=== PATIENT | female | born 1970 | race Caucasian/White ===

== ENCOUNTER 2021-09-12 17:46 | Emergency (ER) | payer OTHER, SELFPAY ==
[2021-09-12 17:47] VITALS: BP 126/95; PULSE 90; RESP 18; TEMP 36.4; O2SAT 98; BMI 45.1
--- NOTE | 2021-09-12 18:41 | CT_ITS ---
STUDY: CT BRAIN WITHOUT CONTRAST REASON FOR EXAM: Female, 51 years old. fall RADIATION DOSAGE (If Supplied By Facility): CTDIvol = ( 44.99 ) mGy, DLP = ( 897.35 ) mGycm TECHNIQUE: Transaxial CT imaging of the brain was performed without administration of intravenous contrast material. Individualized dose optimization techniques were used for this CT. COMPARISON: No relevant priors. FINDINGS: Normal soft tissue structures. Normal calvarium. Normal size ventricles and extra-axial spaces for the patient''s age. Normal white matter tracts of the cerebral hemispheres. Normal basal ganglia and thalami. Normal brainstem. Normal cerebellum. There is no intracranial hemorrhage. There are no findings of an acute ischemic infarction. Normal visualized paranasal sinuses. CT/Brain/Head without Contrast IMPRESSION: Normal unenhanced CT scan of the brain. Electronically Signed: Cristel Ortega MD at 20:40 EDT Reading Location ID and State: [id number] / Tel , Service support ,
--- NOTE | 2021-09-12 18:43 | RAD_ITS ---
STUDY: X-RAY - LEFT KNEE REASON FOR EXAM: Female, 51 years old. fall TECHNIQUE: 4 view(s) of the knee. COMPARISON: None. FINDINGS: No acute fracture or dislocation. Patellar spurring. Moderate spurring of the anterior tibial tubercle. Joint spaces are well-maintained. Normal alignment. Soft tissues are unremarkable. No radiopaque foreign body or soft tissue gas. RAD/Knee 4 or More Views IMPRESSION: No acute findings. Electronically Signed: Cristel Ortega MD at 21:05 EDT Reading Location ID and State: [id number] / Tel , Service support ,
--- NOTE | 2021-09-12 18:43 | RAD_ITS ---
STUDY: X-RAY - LEFT FOOT CLINICAL: Female, 51 years old. injury TECHNIQUE: 3 view(s) of the foot. COMPARISON: None. FINDINGS: No acute fracture or dislocation. Moderate dorsal talonavicular spurring. Dorsal cuneiform spurring. Heel spurs. Prominent spurring at the base of the fifth metatarsal. Normal alignment. Marked dorsal soft tissue swelling at the metatarsal level. No radiopaque foreign body or soft tissue gas. RAD/Foot min 3 Views IMPRESSION: Marked dorsal soft tissue swelling. No evidence of fracture. Degenerative changes noted above. Electronically Signed: Cristel Ortega MD at 21:00 EDT Reading Location ID and State: [id number] / Tel , Service support ,
--- NOTE | 2021-09-12 18:53 | RAD_ITS ---
STUDY: X-RAY - RIGHT KNEE REASON FOR EXAM: Female, 51 years old. FALL TECHNIQUE: 4 view(s) of the knee. COMPARISON: None. FINDINGS: No acute fracture or dislocation. Prominent anterior tibial tubercle spur. Joint spaces are well-maintained. Normal alignment. Soft tissues are unremarkable. No radiopaque foreign body or soft tissue gas. RAD/Knee 4 or More Views IMPRESSION: No acute findings. Electronically Signed: Cristel Ortega MD at 21:06 EDT Reading Location ID and State: [id number] / Tel , Service support ,
--- NOTE | 2021-09-12 19:27 | RAD_ITS ---
INDICATION: fall EXAMINATION/TECHNIQUE: X-RAY - XR Chest 2 Views COMPARISON: None. FINDINGS: The lungs are clear. Tortuous and calcified thoracic aorta. The heart is not enlarged. No pleural effusion or pneumothorax. Degenerative changes of the thoracic spine. RAD/Chest PA and Lateral IMPRESSION: No acute radiographic abnormalities. Electronically Signed: Mark Nolasco MD at 20:42 EDT ,
--- NOTE | 2021-09-12 19:42 | CT_ITS ---
STUDY: CT CERVICAL SPINE WITHOUT CONTRAST REASON FOR EXAM: Female, 51 years old. fall RADIATION DOSAGE (If Supplied By Facility): CTDIvol = ( 29.06 ) mGy, DLP = ( 622.41 ) mGycm TECHNIQUE: High resolution transaxial imaging was performed without contrast material. Sagittal and coronal images were reconstructed. Individualized dose optimization techniques were used for this CT. COMPARISON: None FINDINGS: Normal craniovertebral junction. Normal anterior atlantoaxial articulation. Normal odontoid process. Normal cervical lordosis. No demonstrated fracture. C2-3: Normal disc height and morphology. Normal central canal. Foramina are patent. C3-4: Normal disc height and morphology. Normal central canal. Foramina are patent. C4-5: Normal disc height and morphology. Normal central canal. Foramina are patent. C5-6: Disc space narrowing. Mild spondylotic bar causing moderate canal stenosis. Severe foraminal stenosis due to uncinate hypertrophy. C6-7: Normal disc height and morphology. Small left paracentral spondylotic protrusion causes mild canal stenosis. Normal central canal. Foramina are patent. C7-T1: Normal disc height and morphology. Normal central canal. Foramina are patent. Normal visualized soft tissue structures. CT/Spine Cervical without Contras IMPRESSION: No evidence of cervical trauma. Mild degenerative changes noted above. Electronically Signed: Cristel Ortega MD at 20:45 EDT Reading Location ID and State: [id number] / Tel , Service support ,
--- NOTE | 2021-09-12 19:50 | EDS_ITS ---
HPI History of Present Illness Chief Complaint: Fall Informant: patient Onset/Context/Timing Onset: Today Narrative Narrative: Patient presents after a fall at a local hotel. She tripped going up some steps. She has a wound to the underside of her left great toe that was bleeding prior to arrival. She is contusions to her bilateral knees and some mild back pain. She states she does have a headache. She does not take anticoagulants. There was no loss of consciousness. She is had no vision change, nausea, or vomiting. Daughter at bedside states she is at her baseline. [facility] Medical History Hx of gastroesophageal reflux (GERD) Myocardial infarction Allergy/AdvReac Type Severity Reaction Status Date / Time Penicillins Allergy Other Verified 09/12/21 17:49 Social History Smoking Status: Never smoker ROS ROS ED Constitutional Constitutional ED: Denies chills or fever(s) Eyes Eyes: Denies change in vision or discharge from eye(s) ENT ENT ED: Denies discharge from eye(s), rhinorrhea or sore throat Cardiovascular Cardiovascular: Denies chest pain or palpitations Respiratory/Chest Respiratory/Chest: Denies cough or dyspnea Gastrointestinal Gastrointestinal: Denies abdominal pain, diarrhea, nausea or vomiting Genitourinary Genitourinary ED: Denies difficulty urinating or dysuria Musculoskeletal Musculoskeletal: Reports back pain and extremity pain Integumentary Reports Abrasions; Denies rash Neurologic Neurologic: Reports headache(s); Denies weakness Psychiatric Psychiatric: Denies anxiety or depression Endocrine Endocrinology: Denies polydipsia or polyuria Allergic/Immunologic Allergic/Immunologic ED: Denies lip swelling or urticaria EXAM Physical Exam Const Vital Signs: 09/12/21 17:47 09/12/21 20:33 Temperature 97.6 F L Temperature Source Temporal Pulse Rate 90 Respiratory Rate 18 Respiratory Effort Normal Respiratory Depth Normal Respiratory Pattern Normal Blood Pressure 126/95 H Blood Pressure Mean 105 Pulse Ox 98 Oxygen Delivery Method Room Air Positive well nourished and well developed General Appearance ED: well developed HEENT Reports normocephalic and head/scalp atraumatic Eyes PERRL and EOMs intact bilaterally Neck supple Neck Narrative: No focal C-spine tenderness. Chest Wall inspection of chest normal and palpation of chest normal Resp normal respiratory effort and clear to auscultation bilaterally Cardio regular rate and regular rhythm GI non-tender Palpation: soft Back/Spine Back/Spine Narrative: Mild tenderness in the mid thoracic spine. No step-offs. Extremity Extremity Narrative: Abrasions over the anterior knees bilaterally. Patient able to straight leg raise her foot off the bed. Mild knee tenderness noted. Small skin tear noted to the undersurface of the left great toe. Bleeding controlled at this time. Neuro oriented x3 and no sensory deficits noted Sensorium / Orientation: alert Motor Exam: strength 5/5 throughout Psych mental status grossly normal MDM MDM MDM Narrative Medical decision making narrative: Patient given Tylenol for headache. CT scans and x-rays ordered. Lab Data Attestation: I reviewed the patient's lab results. Radiography Diagnostic Testing: Clinical Impression(s) from Imaging Studies Brain CT 09/12/21 18:41 IMPRESSION: Normal unenhanced CT scan of the brain. Electronically Signed: Cristel Ortega MD at 20:40 EDT Reading Location ID and State: Maris Jackson MD Tel , Service support , Foot X-Ray 09/12/21 18:43 IMPRESSION: Marked dorsal soft tissue swelling. No evidence of fracture. Degenerative changes noted above. Electronically Signed: Cristel Ortega MD at 21:00 EDT Reading Location ID and State: Maris Jackson MD Tel , Service support , Knee X-Ray 09/12/21 18:43 IMPRESSION: No acute findings. Electronically Signed: Cristel Ortega MD at 21:05 EDT Reading Location ID and State: Maris Jackson MD Tel , Service support , Knee X-Ray 09/12/21 18:53 IMPRESSION: No acute findings. Electronically Signed: Cristel Ortega MD at 21:06 EDT Reading Location ID and State: Maris Jackson MD Tel , Service support , Chest X-Ray 09/12/21 19:27 IMPRESSION: No acute radiographic abnormalities. Electronically Signed: Mark Nolasco MD at 20:42 EDT , Cervical Spine CT 09/12/21 19:42 IMPRESSION: No evidence of cervical trauma. Mild degenerative changes noted above. Electronically Signed: Cristel Ortega MD at 20:45 EDT Reading Location ID and State: [id number] / Tel , Service support , Treatment and Re-Evaluation Narrative: X-ray of the bilateral knees per mitral rotation fell no acute bony injury. X- ray of the left foot reveals no bony injury. 2 view chest x-ray reveals no rib injury and no evidence of infiltrate. Radiology interpretation avulsed images reviewed. CT scan of the head is unremarkable. CT the C-spine reveals mild degenerative changes. On repeat evaluation patient complains of continued headache. She will be given IM Toradol. Left foot wound is cleansed and dressing applied. Discharge Plan Triage Chief Complaint: Fall ED Provider: Tracy Wagner Dx/Rx/DC Orders Clinical Impression: Fall, Closed head injury, Flap laceration of skin Instructions: ED Mechanical Fall, ED Head Injury (Adult), ED Laceration: All Closures Primary Care Provider: KOKO PARR Referrals: KOKO PARR [Other] - 1 Week if not improving Disposition Disposition: Home, Self Care
[2021-09-12] MEDS: Acetaminophen 500 MG Tablet 1000 MG PO (19:53)
[2021-09-12] MEDS: Ketorolac 60 MG/2 ML Vial IM (21:35)
[2021-09-12 22:05] VITALS: PULSE 78; RESP 20
== END 2021-09-12 22:09 | disposition home or self-care (01) ==
PROVIDERS: Emergency Provider Emergency Medicine; Visit Provider Emergency Medicine
DX: S09.90XA Unspecified injury of head, initial encounter (principal); S80.02XA Contusion of left knee, initial encounter; M54.9 Dorsalgia, unspecified; W10.9XXA Fall (on) (from) unspecified stairs and steps, initial encounter; S91.102A Unspecified open wound of left great toe without damage to nail, initial encounter; S80.01XA Contusion of right knee, initial encounter; Y92.59 Other trade areas as the place of occurrence of the external cause
CPT/HCPCS: 70450; 71046; 72125; 73564; 73630; 96372; 99284